=== PATIENT | male | born 1985 | race Caucasian/White ===

== ENCOUNTER 2022-09-24 10:23 | Emergency (ER) | payer OTHER, SELFPAY ==
[2022-09-24 10:25] VITALS: BP 129/94; PULSE 64; RESP 16; TEMP 36.6; O2SAT 98; BMI 28.0
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
[2022-09-24 12:26] VITALS: PULSE 78; RESP 16; O2SAT 97
== END 2022-09-24 12:27 | disposition home or self-care (01) ==
PROVIDERS: Emergency Provider Emergency Medicine; Visit Provider Emergency Medicine
DX: S39.012A Strain of muscle, fascia and tendon of lower back, initial encounter (principal); F17.210 Nicotine dependence, cigarettes, uncomplicated; S16.1XXA Strain of muscle, fascia and tendon at neck level, initial encounter; V89.2XXA Person injured in unspecified motor-vehicle accident, traffic, initial encounter; Y92.410 Unspecified street and highway as the place of occurrence of the external cause
CPT/HCPCS: 72040; 72100; 99284

== ENCOUNTER 2022-12-02 21:15 | Emergency (ER) | payer OTHER, SELFPAY ==
[2022-12-02 21:17] VITALS: BP 138/84; PULSE 82; RESP 18; TEMP 36.8; O2SAT 100; BMI 27.3
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
[2022-12-02] MEDS: Bupivacaine Mpf 0.5% 30 ML VIAL INFILT (21:46)
[2022-12-02] MEDS: HYDROcodone Bitartrate/Apap 5/325 Tablet PO (21:47)
[2022-12-02] MEDS: Diphth,Pertuss(Acell),Tet Vac 0.5 ML Vial IM (21:47)
== END 2022-12-02 23:37 | disposition home or self-care (01) ==
PROVIDERS: Emergency Provider Emergency Medicine; Visit Provider Emergency Medicine
DX: S61.212A Laceration without foreign body of right middle finger without damage to nail, initial encounter (principal); T23.002A Burn of unspecified degree of left hand, unspecified site, initial encounter; W26.8XXA Contact with other sharp object(s), not elsewhere classified, initial encounter; Y99.0 Civilian activity done for income or pay; Y92.69 Other specified industrial and construction area as the place of occurrence of the external cause; X19.XXXA Contact with other heat and hot substances, initial encounter; F17.290 Nicotine dependence, other tobacco product, uncomplicated
CPT/HCPCS: 12001; 90715; 96372; 99283